=== PATIENT | male | born 1985 | race Caucasian/White ===

== ENCOUNTER 2018-11-29 10:44 | Emergency (ER) | payer OTHER ==
[~2018-11-29] VITALS: Ht 172.7 cm; Wt 145.0 kg
[2018-11-29] MEDS ORDERED: OLAN10TA3 PO (10:59)
[2018-11-29] MEDS ORDERED: HYDR-4031 PO (10:59)
[2018-11-29 11:29] LABS: BASOPHILS % (AUTO) 0.7 % (0.0-2.0); EOSINOPHILS % (AUTO) 1.9 % (1.0-6.0); LYMPHOCYTES # (AUTO) 1.6 K/uL (1.0-4.8); LYMPHOCYTES % (AUTO) 26.9 % (22.0-44.0); MEAN CORPUSCULAR HEMOGLOBIN 29.2 pg (26.0-34.0); MEAN CORPUSCULAR HGB CONC 33.3 G/dL (31.0-37.0); MEAN CORPUSCULAR VOLUME 88 fL (80-100); MONOCYTES # (AUTO) 0.4 K/uL (0.1-1.0); NEUTROPHILS # (AUTO) 3.8 K/uL (1.8-7.7); NEUTROPHILS % (AUTO) 63.5 % (40.0-70.0); PLATELET COUNT (AUTO) 258 K/uL (150-450); RED BLOOD CELL COUNT(AUTO) 4.44 MIL/uL (4.50-5.90); RED CELL DISTRIBUTION WIDTH 13.2 % (11.5-14.5)
[2018-11-29 11:42] LABS: ANION GAP 7 mmol/L (8-16); CALCIUM, TOTAL 9.1 mg/dL (8.8-10.5); CARBON DIOXIDE 29 mmol/L (22-29); CHLORIDE 102 mmol/L (98-107); CREATININE 0.68 mg/dL (0.60-1.30); GLOMERULAR FILTR. RATE CALC > 60 mL/min (>60); GLUCOSE,RANDOM 99 mg/dL (70-110); POTASSIUM 4.2 mmol/L (3.5-5.1); SODIUM SERUM 138 mmol/L (136-145); UREA NITROGEN, BLOOD 13 mg/dL (7-18)
[2018-11-29 11:47] LABS: ALANINE AMINOTRANSFERASE 40 U/L (12-78); ALBUMIN 3.7 g/dL (3.4-5.0); ALKALINE PHOSPHATASE 67 U/L (46-116); ASPARTATE AMINOTRANSFERASE 29 U/L (15-37); BILIRUBIN,TOTAL 0.1 mg/dL (0.1-1.0); LIPASE 88 U/L (73-393); TOTAL PROTEIN, SERUM 7.5 g/dL (6.4-8.2)
[2018-11-29 12:44] VITALS: BP 123/76
== END 2018-11-29 12:45 | disposition home or self-care (01) ==
LOC: EMS 10:46
DX: K64.9 Unspecified hemorrhoids (principal); F41.9 Anxiety disorder, unspecified; F32.9 Major depressive disorder, single episode, unspecified; F17.210 Nicotine dependence, cigarettes, uncomplicated; F11.90 Opioid use, unspecified, uncomplicated